=== PATIENT | male | born 1995 | race Caucasian/White ===

== ENCOUNTER 2019-03-29 09:25 | Emergency (ER) | payer OTHER, SELFPAY ==
--- NOTE | ~2019-03-29 | XR_ITS ---
EXAMINATION: XR chest 2V EXAM DATE: 03/29/2019 09:57 INDICATION: Mid chest pain onset last night. TECHNIQUE: Frontal and lateral projections of the chest obtained and reviewed. Comparison is made to prior examination from 09/11/2010. FINDINGS: The lungs are clear. There are no pleural effusions. The cardiomediastinal silhouette is within normal limits. There is no pneumothorax suspected. The bones and soft tissues are unremarkab le. IMPRESSION: Normal chest x-ray exam. Reviewed, dictated and finalized at location A. GRINDER IMPRESSION: Normal chest x-ray exam.
[2019-03-29 09:29] VITALS: BP 154/98; PULSE 97; RESP 15; TEMP 36.8; O2SAT 98
--- NOTE | 2019-03-29 09:35 | ECG_ITS ---
Measurements Intervals [place] Rate: 104 P: 43 RI: 137 QRS: 56 QRSD: 110 T: -9 QT: 368 QTc: 485 Interpretive Statements SINUS TACHY[address] ST ELEVATION IN ANTERIOR LEADS- PROBABLY EARLY REPOLARIZATION BORDERLINE ST-T WAVE ABNORMALITY- INFERIOR LEADS BASELINE ARTIFACT- I, II, AVR, AVF ABNORMAL ECG Electronically Signed On 03-29-2019 11:45:53 CART DRIVER by Jim Baltazar D.O.
[2019-03-29 09:41] VITALS: PULSE 85
[2019-03-29 09:47] LABS: Basophils Percent Auto 0.4 % (0.2-1.2); Eosinophils Absolute Auto 0.2 K/mm3 (0-0.3); Eosinophils Percent Auto 2.7 % (0-4.4); Hemoglobin 17.3 g/dL (14.0-18.0); Immature Granulocyte Absolute 0.04 K/mm3 (0.00-0.031); Immature Granulocyte Percent A 0.5 % (0-0.5); Lymphocytes Absolute Auto 2.75 K/mm3 (0.9-3.2); Lymphocytes Percent Auto 36.5 % (18.3-44.2); Mean Corpuscular HGB Conc 35.3 g/dl (32-36); Mean Corpuscular Hemoglobin 32.5 pg (26-34); Mean Corpuscular Volume 92.1 fl (80-100); Monocytes Absolute Auto 0.8 K/mm3 (0.1-0.6); Monocytes Percent Auto 10.1 % (2.6-8.5); Neutrophils Absolute Auto 3.8 K/mm3 (1.3-6.7); Neutrophils Percent Auto 49.8 % (45.5-73.1); Platelet Count Result 170 k/mm3 (150-375); Red Blood Count 5.32 M/mm3 (4.6-6.20); Red Cell Distribution Width 11.3 % (11.5-14.5); White Blood Count 7.5 K/mm3 (4.5-10.0)
[2019-03-29 09:57] LABS: INR 0.9; Prothrombin Time 11.9 Seconds (11.1-14.7)
[2019-03-29 09:58] LABS: Alanine Aminotransferase 64 U/L (4-50); Albumin Level 4.5 g/dL (3.5-5.1); Alkaline Phosphatase 93 U/L (38-126); Aspartate Amino Transferase 44 U/L (17-59); Bilirubin,Total 0.7 mg/dL (0.2-1.3); Blood Urea Nitrogen 13 mg/dL (9-20); Carbon Dioxide 25 mmol/L (22-30); Chloride 104 mmol/L (98-107); Estimated CRCL calculation 167 ml/min; Estimated Glomerular Filt Rate > 60; Glucose 100 mg/dL (75-110); Lipase 29 U/L (23-300); Partial Thromboplastin Time 26.5 SECONDS (22.3-36.8); Potassium 3.8 mmol/L (3.4-5.0); Sodium 139 mmol/L (137-145)
[2019-03-29 10:02] LABS: D Dimer 0.27 ug/mL (<0.48)
[2019-03-29 10:10] LABS: NT Pro B Type Natriuretic Pept 49 PG/ML (5-100); Troponin I < 0.012 ng/mL (0.000-0.034)
[2019-03-29] MEDS: SODIUM CHLORIDE 0.9% IV 1,000 ML 999 ML IV CONT (10:44)
[2019-03-29 10:48] LABS: Add Urine Microscopic? YES; Appearance Urine Clear (Clear); Bilirubin Urine Negative (Negative); Blood Urine Negative (Negative); Color Urine Yellow (Yellow); Glucose Urine UA Negative (Negative); Ketones Urine Negative (Negative); Leukocyte Esterase Ur Negative LEU/UL (Negative); Mucus Urine Heavy /lpf; Nitrate Urine Negative (Negative); Protein Urine 1+ mg/dL (Negative); Squamous Epithelial Cell Urine Rare /hpf (Few); WBC Urine 0-3 /hpf
[2019-03-29 10:49] LABS: Specific Grav Ur 1.033 (1.001-1.035)
[2019-03-29 11:00] LABS: Barbiturate Screen Urine Negative (Negative)
[2019-03-29 11:03] LABS: Amphetamine Screen Urine Negative (Negative); Cannabinoid Screen Urine Negative (Negative); Cocaine Screen Urine Negative (Negative); Opiate Screen Urine Negative (Negative); Phencyclidine Screen Urine Negative (Negative)
[2019-03-29 11:19] LABS: Benzodiazepines Screen Urine Negative (Negative); Methadone Screen Urine Negative (Negative)
--- NOTE | 2019-03-29 11:22 | ED.GENADULT ---
HPI - General Adult General Chief complaint: Chest Pain Stated complaint: Chest Pain Time Seen by Provider: 03/29/19 09:26 Source: patient and family Mode of arrival: ambulatory Limitations: no limitations History of Present Illness HPI narrative: Patient is a 24-year-old male who presents to emergency department for evaluation of midsternal chest heaviness that began last night patient was at dinner with family when he felt flushed and sweaty and anxious with history of anxiety and has since had some mild midsternal chest discomfort that he notes is minimal in nature and described as heaviness with slight anxiety patient notes that he had been doing some drinking the night before. Patient denies illness vomiting diarrhea or dyspnea. Patient has not taken anything for his symptoms and on arrival is in the room in no distress Onset (ago): hour(s) Location: chest Radiation: non-radiation Severity: mild Quality: other (heaviness) Pain Consistency: constant Relieving factors: none Exacerbating factors: none Associated symptoms: denies other symptoms and other (Anxiety) Treatments prior to arrival: none Related Data Allergies Allergy/AdvReac Type Severity Reaction Status Date / Time Cephalosporins Allergy Mild Unknown Verified 03/29/19 09:43 cefprozil Allergy Unknown Unknown Verified 03/29/19 09:43 sulfamethizole Allergy Unknown rash Verified 06/28/16 08:20 trimethoprim Allergy Unknown rash Verified 06/28/16 08:20 Review of Systems Review of Systems: Narrative: CONSTITUTIONAL: Denies fever, chills, or sweats. EYES: Denies redness, or discharge. ENT: Denies rhinorrhea, congestion, sore throat, or otalgia. CARDIOVASCULAR: Denies palpitations, or edema. RESPIRATORY: Denies cough or dyspnea. GASTROINTESTINAL: Denies abdominal pain, nausea, vomiting, or diarrhea. GENITOURINARY: Denies dysuria or hematuria. SKIN: Denies rash or itching. MUSCULOSKELETAL: Denies back pain, joint pain, or myalgia. NEUROLOGIC: Denies headache, numbness, dizziness, or weakness. PSYCHIATRIC: Denies depression. All systems reviewed & are unremarkable except as noted in HPI and below PMFSH Past Medical History Medical History (Updated 03/29/19 @ 13:44 by Stas Pimentel PA-C) Anxiety Surgical History Surgical History (Updated 03/29/19 @ 11:25 by Stas Pimentel PA-C) H/O hand surgery Family History Family History Father Hypertension Grandparent Family history of cardiovascular disease Cerebrovascular accident Family history of malignant neoplasm of brain Other Diabetes mellitus Social History Social History Smoking status: Smoker, status unknown Alcohol intake: never Exam Narrative: Exam Narrative: GENERAL: Well-appearing, well-nourished, and in no acute distress. HEAD: Normocephalic, atraumatic. EYES: PERRLA and EOMI. ENT: Nares clear, no rhinorrhea or epistaxis. Mucous membranes moist. Oropharynx without tonsillar hypertrophy exudate or other lesions. NECK: Supple. No adenopathy or masses. CHEST: Clear to auscultation. No respiratory distress. No wheezes rales or rhonchi HEART: Regular rate and rhythm. No murmur heard. Normal peripheral pulses. ABDOMEN: Soft, nontender, nondistended EXTREMITIES: Normal range of motion. No edema. SKIN: Warm, dry, no rash. NEURO: No focal deficits. Alert and oriented x3. Cranial nerves II through XII grossly intact. Normal speech and gait PSYCH: Normal mood and affect. Course Course Emergency Course: Patient in the room in no distress aware of case findings treatment plan and diagnosis agreeing to follow-up as directed or to return Vital Signs Vital signs: Vital Signs Temperature 98.2 F 03/29/19 09:29 Pulse Rate 97 03/29/19 09:29 Respiratory Rate 15 03/29/19 09:29 Blood Pressure 154/98 H 03/29/19 09:29 Pulse Oximetry 98 03/29/19 09:29 [place]
[2019-03-29 11:24] LABS: Free T4 Free Thyroxine Reflex 0.64 ng/dL (0.78-2.19)
[2019-03-29 11:50] VITALS: PULSE 66; RESP 16; O2SAT 97
[2019-03-29 12:50] VITALS: PULSE 67; RESP 16; O2SAT 99
[2019-03-29 13:21] LABS: Troponin I < 0.012 ng/mL (0.000-0.034)
[2019-03-29] MEDS: KETOROLAC 30 MG/ML VIAL (*BKC) IV PUSH (13:48)
[2019-03-29 13:51] VITALS: BP 145/81; PULSE 60; RESP 16; O2SAT 97
[2019-03-29 14:13] VITALS: PULSE 97; RESP 16; O2SAT 96
== END 2019-03-29 14:10 | disposition home or self-care (01) ==
PROVIDERS: Emergency Medicine Emergency Medical Services; Emergency Provider Emergency Medicine; PCP Family Medicine
DX: R07.2 Precordial pain (principal); R00.0 Tachycardia, unspecified; R94.31 Abnormal electrocardiogram [ECG] [EKG]
CPT/HCPCS: 36415; 71046; 80053; 80307; 81001; 83690; 83880; 84439; 84443; 84484; 85025; 85380; 85610; 85730; 93005; 96361; 96374; 99284; J1885; J7030

== ENCOUNTER 2019-07-10 11:30 | Outpatient (CLI) | payer OTHER, SELFPAY | END 2019-07-10 11:31 | disposition home or self-care (01) | LOC: CHSOUTPT 11:33 | PROVIDERS: PCP Family Medicine; Visit Provider Specialist | DX: E78.5 Hyperlipidemia, unspecified (principal) | CPT/HCPCS: 99199 ==

== ENCOUNTER 2019-10-10 07:00 | Outpatient (CLI) | payer OTHER, SELFPAY ==
--- NOTE | ~2019-10-10 | NM_ITS ---
EXAMINATION: NM hepatobiliary w pharm DATE: 10/10/2019 09:06 INDICATION: Epigastric abdominal pain. Gastroesophageal reflux disease. COMPARISON: CT abdomen 04/16/2019 TECHNIQUE: 5.3 mCi Tc-99m mebrofenin (Choletec) was administered intravenously. Scintigraphic images of the abdomen were obtained for one hour. Then, 1.9 mcg sincalide (Kinevac) IV was administered, an d imaging was continued for 30 minutes. FINDINGS: There is normal clearance of radiotracer from the blood pool. There is homogeneous tracer u ptake by the liver. Activity progresses to the bowel and gallbladder. Gallbladder ejection fraction (GBEF) was 96%. Note that most patients with gallbladder dysfunction have GBEF < 35%, which overlaps with the broad normal range of 10-90%. IMPRESSION: 1. Normal hepatobiliary scintigraphy. Reviewed, dictated and finalized at location A.
== END 2019-10-10 07:01 | disposition home or self-care (01) ==
PROVIDERS: PCP Family Medicine; Visit Provider Internal Medicine Gastroenterology
DX: K21.9 Gastro-esophageal reflux disease without esophagitis (principal); R10.13 Epigastric pain
CPT/HCPCS: 78227; A9537; J2805

== ENCOUNTER 2020-08-18 07:39 | Outpatient (CLI) | payer OTHER, SELFPAY ==
--- NOTE | ~2020-08-18 | MR_ITS ---
EXAMINATION: MR brain/brain stem wo con DATE: 08/18/2020 08:56 INDICATION: Dizziness and giddiness. TECHNIQUE: Magnetic resonance imaging (MRI) of the brain and brainstem was performed without intraven ous contrast. Sequences included sagittal and axial T1-weighted FSE, axial diffusion-weighted FS EPI, axial T2*-weighted GRE, axial T2-weighted FLAIR Propeller, and axial T2-weighted Propeller. Apparent diffusion coefficient (ADC) maps were created. COMPARISON: Brain MRI 08/23/2016 FINDINGS: There is no intracranial hemorrhage, acute infarction, or abnormal intracranial mass lesion . The ventricles are normal in size. There is mucosal thickening in the paranasal sinuses. The orbits are normal. The mastoid air cells are normal. IMPRESSION: 1. Normal brain. Reviewed, dictated and finalized at location A. IMPRESSION: 1. Normal brain.
== END 2020-08-18 07:40 | disposition home or self-care (01) ==
PROVIDERS: PCP Family Medicine; Visit Provider Nurse Practitioner Family
DX: R42 Dizziness and giddiness (principal)
CPT/HCPCS: 70551

== ENCOUNTER 2022-03-25 13:30 | Outpatient (CLI) | payer OTHER, SELFPAY ==
--- NOTE | ~2022-03-25 | XR_ITS ---
EXAMINATION: SCOLIOSIS DATE: 03/25/2022 18:15 STILE RIPSAW OPERATOR INDICATION: Back pain TECHNIQUE: Standing AP and lateral views of the thoracolumbar spine FINDINGS: There are 12 rib bearing thoracic vertebral bodies and 5 non-rib bearing lumbar type verteb ral bodies. There is no listhesis, compression deformity or vertebral body anomalies. There is mild levocurvature of the lumbar spine centered at T12 of 5 degrees. IMPRESSION: 1. Mild smooth levoscoliosis of the thoracolumbar spine measuring 5 degrees. 2. No vertebral body anomalies. Reviewed, dictated and finalized at location A. E RIPSAW OPERATOR
== END 2022-03-25 13:31 | disposition home or self-care (01) ==
LOC: ANHIMG 13:37
PROVIDERS: PCP Internal Medicine; Visit Provider Internal Medicine
DX: M54.50 Low back pain, unspecified (principal); G89.29 Other chronic pain; M41.85 Other forms of scoliosis, thoracolumbar region
CPT/HCPCS: 72082

== ENCOUNTER 2025-04-20 12:54 | Emergency (ER) | payer OTHER, SELFPAY ==
[2025-04-20] VITALS (17 sets, daily range): BP systolic 126–147; BP diastolic 68–83; PULSE 72–90; RESP 12–20; TEMP 36.4–36.5; O2SAT 94–100
--- NOTE | ~2025-04-20 | XR_ITS ---
Examination: XR chest 2V Clinical History: chest pain Comparison: 01/27/2019 Technique: PA and Lateral Findings: Cardiomediastinal silhouette normal size and configuration. Lungs clear. No acute bony abnormality. IMPRESSION: 1. No acute cardiopulmonary findings. Reviewed, dictated and finalized at location R. LIFE SCIENCE PROFESSOR
--- NOTE | 2025-04-20 12:59 | ECG_ITS ---
Test Date: 2025-04-20 13:03:07 Measurements Intervals [place] Rate: 78 P: 61 HI: 141 QRS: 76 QRSD: 105 T: 42 QT: 335 QTc: 383 Interpretive Statements SINUS RHYTHM NORMAL ECG No previous ECG available for comparison Electronically Signed On 04-20-2025 21:55:45 CENTRAL OFFICE SUPERVISOR by Jim Baltazar D.O.
[2025-04-20 13:08] LABS: Hematocrit 49.4 % (42.0-52.0); Hemoglobin 17.9 g/dL (14.0-18.0); Immature Granulocyte Percent A 0.4 % (0-0.5); Lymphocytes Absolute Auto 1.34 K/mm3 (0.9-3.2); Mean Corpuscular HGB Conc 36.2 g/dl (32-36); Mean Corpuscular Hemoglobin 33.5 pg (26-34); Mean Corpuscular Volume 92.3 fl (80-100); Nucleated Red Blood Cells Absolute Auto 0.000 K/mm3 (0.0-0.012); Nucleated Red Blood Cells Perc 0.0 % (0.0-0.2); Platelet Count Result 160 k/mm3 (150-375); Red Blood Count 5.35 M/mm3 (4.6-6.20); White Blood Count 9.0 K/mm3 (4.5-10.0)
[2025-04-20 13:20] LABS: INR 1.0; Prothrombin Time 13.1 Seconds (11.1-14.7)
[2025-04-20 13:21] LABS: Alanine Aminotransferase 34 U/L (6-50); Albumin Level 4.6 g/dL (3.5-5.1); Alkaline Phosphatase 73 U/L (38-126); Anion Gap 6 mmol/L (4-12); Aspartate Amino Transferase 34 U/L (17-59); Bilirubin,Total 0.7 mg/dL (0.2-1.3); Blood Urea Nitrogen 8 mg/dL (9-20); Calcium 9.5 mg/dL (8.4-10.2); Carbon Dioxide 27 mmol/L (22-30); Chloride 106 mmol/L (98-107); Estimated CRCL calculation 127 ml/min; Estimated Glomerular Filt Rate > 60; Glucose 118 mg/dL (65-110); Lipase 39 U/L (23-300); Partial Thromboplastin Time 24.9 Seconds (22.3-36.8); Potassium 3.6 mmol/L (3.4-5.0); Sodium 139 mmol/L (137-145); Total Protein 7.8 g/dL (6.3-8.2)
[2025-04-20 13:33] LABS: Troponin I < 0.012 ng/mL (0.000-0.034)
--- NOTE | 2025-04-20 13:52 | ED.CHESTPAIN ---
HPI - Chest Pain General Chief Complaint: Chest Pain Stated Complaint: CP Time Seen by Provider: 04/20/25 13:52 History of Present Illness HPI narrative: 30-year-old male presents emergency department chest pain. States it has been there for about 2-3 hours , states he has had a sore throat and URI symptoms for a couple days. Denies any shortness of breath no pain with exertion states that the pain started when he is at rest denies any currently. Related Data Allergies Allergy/AdvReac Type Severity Reaction Status Date / Time Cephalosporins Allergy Mild Unknown Verified 11/13/20 10:38 cefprozil Allergy Unknown Unknown Verified 11/13/20 10:38 sulfamethizole Allergy Unknown rash Verified 11/13/20 10:38 trimethoprim Allergy Unknown rash Verified 11/13/20 10:38 Review of Systems Review of Systems: All systems reviewed & are unremarkable except as noted in HPI and below PMFSH Past Medical History Medical History Anxiety BMI 27.0-27.9,adult BMI 28.0-28.9,adult Surgical History Surgical History H/O hand surgery Family History Family History Father Hypertension Grandparent Family history of cardiovascular disease Cerebrovascular accident Family history of malignant neoplasm of brain Mother No problems noted. Sibling No problems noted. Other Diabetes mellitus Social History Social History Smoking packs per day: 0.50 Smoking cigarettes per day: 10.0 Years smoked: 5 Smoking pack-years: 2.50 Smoking status: Current every day smoker Tobacco type: cigarettes Second hand tobacco smoke exposure: Yes Alcohol intake: never Substance use: never Substance use type: does not use Living arrangements: with family Occupation/Education: occupation Additional occupation/education comments: Kitchen staff-'s Gender identity (if verbalized by the patient): Male Exam Narrative: EXAMINATION OF ORGAN SYSTEMS/BODY AREAS: Constitutional: Vital signs per nursing GENERAL:[No acute distress, non-toxic appearing.] HEAD: Normal with no signs of head trauma. EYES: EOMI, conjunctiva normal ENT: Hearing grossly intact LUNGS: Nonlabored breathing. clear to auscultation bilaterally HEART: [Regular rate and rhythm] 2+ radial pulses brisk cap refill ABD: [Soft], [nontender to palpation] EXT: Normal range of motion SKIN: [No rashes or lesions.] NEURO: [Alert. No gross focal sensory or strength deficits.] PSYCH: Normal affect Course Vital Signs Vital signs: Vital Signs Pulse Oximetry 100 04/20/25 12:59 Oxygen Delivery Room Air 04/20/25 12:59 Temperature 36.4 C 04/20/25 13:00 Pulse Rate 90 04/20/25 13:00 Respiratory Rate 20 04/20/25 13:00 Blood Pressure 147/83 H 04/20/25 13:00 Pulse Oximetry 99 04/20/25 13:00 Oxygen Delivery Room Air 04/20/25 12:59 [facility] Differential Diagnosis Differential Diagnosis: 30-year-old male presents with chest pain. I suspect that this is likely pleurisy given his recent URI versus peripheral pneumonia versus less likely pneumothorax versus even less likely atypical presentation of ACS. He is PERC negative I do not suspect pulmonary embolism or vascular catastrophe. We will obtain chest x-ray EKG basic labs troponin plan for evaluation after workup and treatment results and re-evaluation Patient's EKG without ischemia troponin negative labs reviewed and acceptable limits chest x-ray per my interpretation no evidence of pneumothorax or peripheral infiltrate. Therefore I will send him home with NSAIDs for presumed underlying musculoskeletal etiology or pleurisy return precautions discussed understanding verbalized discharged in stable condition. Medical Records I have reviewed the following patient records and this information was taken into consideration when formulating the assessment and plan.: previous hospitalizations and previous clinic visits Lab Data [facility] Lab Attestation statement: I personally reviewed the patient's lab results. 04/20/25 13:02 04/20/25 13:02 Labs: Lab Results 04/20/25 Range/Units 13:02 WBC 9.0 (4.5-10.0) K/mm3 RBC 5.35 (4.6-6.20) M/mm3 Hgb 17.9 (14.0-18.0) g/dL Hct 49.4 (42.0-52.0) % MCV 92.3 (80-100) fl MCH 33.5 (26-34) pg MCHC 36.2 H (32-36) g/dl RDW 11.9 (11.5-14.5) % Plt Count 160 (150-375) k/mm3 MPV 9.2 (7.4-10.4) fl Immature Gran % (Auto) 0.4 (0-0.5) % Neut % (Auto) 76.9 H (45.5-73.1) % Lymph % (Auto) 14.9 L (18.3-44.2) % [place] % (Auto) 6.9 (2.6-8.5) % Eos % (Auto) 0.6 (0-4.4) % Baso % (Auto) 0.3 (0.2-1.2) % Lymph # (Auto) 1.34 (0.9-3.2) K/mm3 [place] # (Auto) 0.6 (0.1-0.6) K/mm3 Eos # (Auto) 0.1 (0-0.3) K/mm3 Baso # (Auto) 0.0 (0.0-0.1) K/mm3 Abs Immat Gran (auto) 0.04 H (0.00-0.031) K/mm3 Absolute Neuts (auto) 6.9 H (1.3-6.7) K/mm3 Absolute Nucleated RBC 0.000 (0.0-0.012) K/mm3 Nucleated RBC % 0.0 (0.0-0.2) % PT 13.1 (11.1-14.7) Seconds INR 1.0 APTT 24.9 (22.3-36.8) Seconds Sodium 139 (137-145) mmol/L Potassium 3.6 (3.4-5.0) mmol/L Chloride 106 (98-107) mmol/L Carbon Dioxide 27 (22-30) mmol/L Anion Gap 6 (4-12) mmol/L BUN 8 L D (9-20) mg/dL Creatinine 0.77 (0.7-1.3) mg/dL Estim Creat Clear Calc 127 ml/min Estimated GFR > 60 (59 - ) Glucose 118 H (65-110) mg/dL Calcium 9.5 (8.4-10.2) mg/dL Total Bilirubin 0.7 (0.2-1.3) mg/dL AST 34 (17-59) U/L ALT 34 (6-50) U/L Alkaline Phosphatase 73 (38-126) U/L Troponin I < 0.012 (0.000-0.034) ng/mL Total Protein 7.8 (6.3-8.2) g/dL Albumin 4.6 (3.5-5.1) g/dL Lipase 39 (23-300) U/L Imaging Data Attestation: I personally reviewed and interpreted this imaging study as follows: My impression: chest x-ray negative acute any cardiopulmonary findings per my interpretation Radiologist's impression: ITS Impressions Chest X-Ray 04/20/25 13:43 IMPRESSION: 1. No acute cardiopulmonary findings. ECG Data EKG #1: Attestation: I personally reviewed and interpreted this ECG as follows: Interpretation: 12 lead EKG per my interpretation is normal sinus rhythm at 70 beats per minute. Normal axis. Normal intervals. No evidence of ST-T segment elevation or depression. Overall impression normal EKG. Discharge Plan Discharge Clinical Impression: Chest pain Patient Disposition: Home Condition: Stable Instructions: Chest Pain (ED) Patient Language: Cape Verdean Prescriptions: New ketorolac 10 mg tablet 10 mg PO Q8H Qty: 14 5RF Rx Instructions: maximum total duration of 5 days from all oral, intranasal, or parenteral formulations No Action meclizine 25 mg tablet 25 mg PO TID PRN (Reason: dizziness) Qty: 30 0RF azithromycin 250 mg tablet See Rx Instructions PO .COMPLEX Qty: 6 0RF Rx Instructions: take 500 mg today (day 1), then 250 mg for 4 days (days 2-5) PO Follow-up/Referrals: Misael,MD Randi [Primary Care Provider, Unknown] - 1 Week Time of Disposition: 15:05
--- OUTSIDE RECORDS SUMMARY | 2025-04-20 14:03 | XMS_ITS | Encounter Summary ---
Author Organization [facility] Address [address] [place] [address] Care Team Providers Care Press Operator Meat Name Role Phone Randi Douglas MD Primary Care Provider [phone] Encounter Details Date Type Department Care Team (Late st Contact Info) Description 01/19/2023 Cornicehart Message Enc [facility] Medical [facility] [address] [place] [address] Randi Douglas MD [address] [place] [address] [place] pain Social History Tobacco Use Types Packs/Day Years Used Date Smoking Tobacco: Every Day Cigarettes 0.5 10 Smokeless Tobacco: Never Comments:counseled by Dr Chapis chappell Alcohol Use Standard Drinks/Week Comments Not Currently 0 (1 standard drink = 0.6 oz pur e alcohol) PHQ-2 Answer Date Recorded PHQ-2 Score - If the patient scores above 3, please move on to questions 3-9 0 02/08/2022 Sex and Gender Information Value Date Recorded Sex Assigned at Not on file Legal Sex Male 2:11 PM CDT Gender Identity Not on file Sexual Orientation Not on file documented as of this encounter Plan of Treatment Upcoming Encounters Date Type Department Care Team (Late st Contact Info) Description 10/18/2025 9:20 AM CDT [facility] [address] [place] [address] Randi Douglas MD [address] [place] [address] documented as of this encounter Visit Diagnoses Not on filedocumented in this encounter Additional Health Concerns Infection Onset Date Last Indicated Resolved Time Respiratory Rule Out 02/26/2025 02/26/2025 025 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
--- OUTSIDE RECORDS SUMMARY | 2025-04-20 14:03 | XMS_ITS | Encounter Summary ---
Author Organization [facility] Address [address] [place] [address] Care Team Providers Care Can Conveyor Feeder Name Role Phone Randi Douglas MD Primary Care Provider [phone] Encounter Details Date Type Department Care Team (Latest Contact Info) Description 03/23/2022 NewAerhart Message [facility] [address] [place] [address] Randi Douglas MD [address] [place] [address] [address] [place] [address] Swelling near armpit Social History Tobacco Use Types Packs/Day Years [...] on file Sexual Orientation Not on file COVID-19 Exposure Response Date Recorded In the last 10 days, have yo u been in contact with someone who was confirmed or suspected to have Coronavirus/COVID-19? No / Unsure 03/24/2022 10:52 AM BUS VAN DRIVER documented as of this encounter Plan of Treatment Upcoming Encounters Date Type Department Care Team (Late st Contact Info) Description 10/18/2025 9:20 AM CDT [facility] [address] [place] [address] Randi Douglas MD [address] [facility] [address] [place] [address] documented as of this encounter Visit Diagnoses Not on filedocumented in this encounter Additional Health Concerns Infection Onset Date Last Indicated Resolved Time COVID-19 Rule Out 07/21/2022 07/21/2022 07/21/2022 3:00 PM CDT COVID-19 Rule Out 07/21/2022 07/21/2022 07/22/2022 3:08 PM CDT Respiratory Rule Out 02/26/2025 02/26/2025 025 9:01 AM BUS VAN DRIVER documented as of this encounter Care Teams Can Conveyor Feeder Relationship Specialty Start Date End Date Randi Douglas MD [address] [facility] [address] [place] [address] PCP - General INTERNAL MEDICINE 02/08/22 documented as of this encounter
--- OUTSIDE RECORDS SUMMARY | 2025-04-20 14:03 | XMS_ITS | Encounter Summary ---
Author Organization [facility] Address [address] [place] [address] Care Team Providers Care Ui Ux Engineer Name Role Phone Randi Douglas MD Primary Care Provider [phone] Encounter Details Date Type Department Care Team (Late Contact Info) Description 04/22/2022 MyChart Message [facility] - [address] [place] [address] Randi Douglas MD [address] [place] [address] [address] [place] [address] Medication Social History Tobacco Use Types Packs/Day Years [...] suspected to have Coronavirus/COVID-19? No / Unsure 04/14/2022 3:34 PM HOME CARE COORDINATOR documented as of this encounter Plan of Treatment Upcoming Encounters Date Type Department Care Team (Late Contact Info) Description 10/18/2025 9:20 AM CDT Office [facility] - [address] [place] [address] Randi Douglas MD [address] [address] documented as of this encounter Visit Diagnoses Not on filedocumented in this encounter Additional Health Concerns Infection Onset Date Last Indicated Resolved Time COVID-19 Rule Out 07/21/2022 07/21/2022 07/21/2022 3:00 PM CDT COVID-19 Rule Out 07/21/2022 07/21/2022 07/22/2022 3:08 PM CDT Respiratory Rule Out 02/26/2025 02/26/2025 025 9:01 AM HOME CARE COORDINATOR documented as of this encounter Care Teams Ui Ux Engineer Relationship Specialty Start Date End Date Randi Douglas MD [address] [address] PCP - General INTERNAL MEDICINE 02/08/22 documented as of this encounter
--- OUTSIDE RECORDS SUMMARY | 2025-04-20 14:03 | XMS_ITS | Encounter Summary ---
Author Organization [facility] Address [address] [place] [address] Care Team Providers Care Electrode Cleaning Machine Operator Name Role Phone Randi Douglas MD Primary Care Provider [phone] Encounter Details Date Type Department Care Team (Latest Contact Info) Description 01/28/2023 Convrrtt Message Enc [facility] - [address] [place] [address] Randi Douglas MD [address] [place] [address] Please go online and schedule for your next appointment. Social History Tobacco Use Types Packs/Day Years [...] Description 10/18/2025 9:20 AM CDT Office Visit [facility] - [place] [address] [address] [place] [address] Randi Douglas MD [address] [place] [address] documented as of this encounter Visit Diagnoses Not on filedocumented in this encounter Additional Health Concerns Infection Onset Date Last Indicated Resolved Time Respiratory Rule Out 02/26/2025 02/26/2025 025 9:01 AM STEREOTYPER APPRENTICE documented as of this encounter Care Teams Electrode Cleaning Machine Operator Relationship Specialty Start Date End Date Randi Douglas MD [address] [address] PCP - General INTERNAL MEDICINE 02/08/22 documented as of this encounter
--- OUTSIDE RECORDS SUMMARY | 2025-04-20 14:03 | XMS_ITS | Encounter Summary ---
Author Organization [facility] Address [address] [place] [address] Care Team Providers Care Database Programmer Name Role Phone Randi Douglas MD Primary Care Provider [phone] Encounter Details Date Type Department Care Team (Late Contact Info) Description 03/15/2022 MyChart [facility] - [address] [place] [address] Randi Douglas MD [address] [place] [address] [address] [place] [address] Sinus Social History Tobacco Use Types Packs/Day Years [...] suspected to have Coronavirus/COVID-19? No / Unsure 03/09/2022 12:35 PM SERVICE CLERK documented as of this encounter Plan of Treatment Upcoming Encounters Date Type Department Care Team (Late st Contact Info) Description 10/18/2025 9:20 AM CDT Office Visit [facility] - [address] [place] [address] Randi Douglas MD [address] [address] documented as of this encounter Visit Diagnoses Not on filedocumented in this encounter Additional Health Concerns Infection Onset Date Last Indicated Resolved Time COVID-19 Rule Out 07/21/2022 07/21/2022 07/21/2022 3:00 PM CDT COVID-19 Rule Out 07/21/2022 07/21/2022 07/22/2022 3:08 PM CDT Respiratory Rule Out 02/26/2025 02/26/2025 025 9:01 AM SERVICE CLERK documented as of this encounter Care Teams Database Programmer Relationship Specialty Start Date End Date Randi Douglas MD [address] [address] PCP - General INTERNAL MEDICINE 02/08/22 documented as of this encounter
--- OUTSIDE RECORDS SUMMARY | 2025-04-20 14:03 | XMS_ITS | Encounter Summary ---
Author Organization [facility] Address [address] [place] [address] Care Team Providers Care Pipe Fitter Soft Copper Name Role Phone Randi Douglas MD Primary Care Provider [phone] Encounter Details Date Type Department Care Team (Late Contact Info) Description 03/29/[address] [facility] [address] [address] [place] [address] Devon, [facility] Provider Xray Result Social History Tobacco Use Types Packs/Day Years [...] Coronavirus/COVID-19? No / Unsure 03/24/2022 10:52 AM SUPERVISOR PAYROLL documented as of this encounter Plan of Treatment Upcoming Encounters Date Type Department Care Team (Late Contact Info) Description 10/18/2025 9:20 AM CDT [facility] [address] [address] [place] [address] Randi Douglas MD [address] [place] [address] 157 [place] [address] documented as of this encounter Visit Diagnoses Not on filedocumented in this encounter Additional Health Concerns Infection Onset Date Last Indicated Resolved Time COVID-19 Rule Out 07/21/2022 07/21/2022 07/21/2022 3:00 PM CDT COVID-19 Rule Out 07/21/2022 07/21/2022 07/22/2022 3:08 PM CDT Respiratory Rule Out 02/26/2025 02/26/2025 025 9:01 AM SUPERVISOR PAYROLL documented as of this encounter Care Teams Pipe Fitter Soft Copper Relationship Specialty Start Date End Date Randi Douglas MD [address] [address] PCP - General INTERNAL MEDICINE 02/08/22 documented as of this encounter
--- OUTSIDE RECORDS SUMMARY | 2025-04-20 14:03 | XMS_ITS | Encounter Summary ---
Author Organization [facility] Address [address] [place] [address] Care Team Providers Care Breeding Technician Name Role Phone Randi Douglas MD Primary Care Provider [phone] Encounter Details Date Type Department Care Team (Late Contact Info) Description 05/06/2022 MyChart Message [facility] [address] [place] [address] Randi Douglas MD [address] [place] [address] 157 [place] [address] M Social History Tobacco Use Types Packs/Day Years [...] Coronavirus/COVID-19? No / Unsure 04/14/2022 3:34 PM OIL BURNER INSTALLER documented as of this encounter Plan of Treatment Upcoming Encounters Date Type Department Care Team (Late st Contact Info) Description 10/18/2025 9:20 AM CDT Office Visit [facility] - [address] [place] [address] Randi Douglas MD [address] [address] documented as of this encounter Visit Diagnoses Not on filedocumented in this encounter Additional Health Concerns Infection Onset Date Last Indicated Resolved Time COVID-19 Rule Out 07/21/2022 07/21/2022 07/21/2022 3:00 PM CDT COVID-19 Rule Out 07/21/2022 07/21/2022 07/22/2022 3:08 PM CDT Respiratory Rule Out 02/26/2025 02/26/2025 025 9:01 AM OIL BURNER INSTALLER documented as of this encounter Care Teams Breeding Technician Relationship Specialty Start Date End Date Randi Douglas MD [address] [address] PCP - General INTERNAL MEDICINE 02/08/22 documented as of this encounter
--- OUTSIDE RECORDS SUMMARY | 2025-04-20 14:03 | XMS_ITS | Encounter Summary ---
Author Organization [facility] Address [address] [place] [address] Care Team Providers Care Bleach Maker Name Role Phone Randi Douglas MD Primary Care Provider [phone] Encounter Details Date Type Department Care Team (Late Contact Info) Description 03/15/2022 Unicon Message Enc [place] [address] [address] [address] [place] [address] Devon [facility] Provider med approval Social History Tobacco Use Types Packs/Day Years [...] Coronavirus/COVID-19? No / Unsure 03/09/2022 12:35 PM CONSTRUCTION TECHNICIAN documented as of this encounter Plan of Treatment Upcoming Encounters Date Type Department Care Team (Late Contact Info) Description 10/18/2025 9:20 AM CDT [facility] [address] [address] [place] [address] Randi Douglas MD [address] [place] [address] 157 [place] [address] documented as of this encounter Visit Diagnoses Not on filedocumented in this encounter Additional Health Concerns Infection Onset Date Last Indicated Resolved Time COVID-19 Rule Out 07/21/2022 07/21/2022 07/21/2022 3:00 PM CDT COVID-19 Rule Out 07/21/2022 07/21/2022 07/22/2022 3:08 PM CDT Respiratory Rule Out 02/26/2025 02/26/2025 025 9:01 AM CONSTRUCTION TECHNICIAN documented as of this encounter Care Teams Bleach Maker Relationship Specialty Start Date End Date Randi Douglas MD [address] [address] PCP - General INTERNAL MEDICINE 02/08/22 documented as of this encounter
--- OUTSIDE RECORDS SUMMARY | 2025-04-20 14:03 | XMS_ITS | Encounter Summary ---
Author Organization [facility] Address [address] [place] [address] Care Team Providers Care Center Director Lead Teacher Name Role Phone Randi Douglas MD Primary Care Provider Encounter Details Date Type Department Care Team (Latest Contact Info) Description 12/10/2022 Boomlagoont Message Enc [facility] Medical [facility] - [address] [place] [address] Randi Douglas MD [address] [place] [address] 157 [place] [address] [employer] approved. Social History Tobacco Use Types Packs/Day Years [...] Description 10/18/2025 9:20 AM CDT Office Visit [facility] Medical [facility] - [address] [place] [address] Randi Douglas MD [address] [place] [address] 157 [place] [address] documented as of this encounter Visit Diagnoses Not on filedocumented in this encounter Additional Health Concerns Infection Onset Date Last Indicated Resolved Time Respiratory Rule Out 02/26/2025 02/26/2025 025 9:01 AM SWITCH BOX INSTALLER documented as of this encounter Care Teams Center Director Lead Teacher Relationship Specialty Start Date End Date Randi Douglas MD [facility] [address] PCP - General INTERNAL MEDICINE 02/08/22 documented as of this encounter
--- OUTSIDE RECORDS SUMMARY | 2025-04-20 14:03 | XMS_ITS | Clinical Summary ---
Author Organization [facility] [employer] [facility] [place] [facility] Address [address] [place] [address] Care Team Providers Care Traffic Sign Erection Supervisor Name Role Phone Unavailable Primary Care Provider Unavailabl e Social History Tobacco Use Types Packs/Day Years Used Date Smoking Tobacco: Never Assessed Sex and Gender Information Value Date Recorded Sex Assigned at Not on file Legal Sex Male 11:40 PM EDT Gender Identity Not on file Sexual Orientation Not on file Plan of Treatment Health Maintenance Due Date Last Done Comments Depression: Screening Annually using PHQ-2/9 in Adults 18 yrs or above (or HM Modifier)([facility]) 2014 Hepatitis C Virus Infection in Adolescents and Adults: Screening (or Modifier) ([facility]) 2014 SDOH Screening Reminder: Annually for all adults ([facility]) 2014 Tobacco Smoking Cessation: i n Adults excluding Women: Behavioral and Pharmacotherapy Interventions ([facility]) 2014 Flu Vaccination: Yearly for ages 18mos through 64 years (or Modifier)([facility]) 11/23/2024 COVID-19 Vaccine Screening: Initial Series and Booster Status ([facility]) (2024- season) 2024 DTaP/Tdap/Td Vaccines ([facility]) (8 - Td or Tdap) 02/17/2031 02/17/2021, 11/17/2006, 10/31/2001, Additional history exists Zoster/Shingles Vaccine Series Screening: Adults aged 18+ yrs (or HM Modifiers)([facility]) (1 of 2) 2046 08/17/2007, 03/29/1997 Pneumococcal Vaccination Screening: Pts 0-19 & 19-49 yrs of age ([facility]) Aged Out 03/09/2022 No longer eligible based on patient's age to complete this topic Medical Devices Not on file
--- OUTSIDE RECORDS SUMMARY | 2025-04-20 14:03 | XMS_ITS | Encounter Summary ---
Author Organization [facility] Address [address] [place] [address] Care Team Providers Care Control Systems Developer Name Role Phone Randi Douglas MD Primary Care Provider [phone] Encounter Details Date Type Department Care Team (Latest Contact Info) Description 08/06/2022 sliceX Message Enc [facility] Provider Need Updated Insurance Social History Tobacco Use Types Packs/Day Years [...] suspected to have Coronavirus/COVID-19? No / Unsure 07/21/2022 2:07 PM CDT documented as of this encounter Plan of Treatment Upcoming Encounters Date Type Department Care Team (Late st Contact Info) Description 10/18/2025 9:20 AM CDT Office Visit [facility] - [place] [address] [address] [address] [place] [address] Randi Douglas MD [address] [place] [address] 157 [place], [place] [id number] documented as of this encounter Visit Diagnoses Not on filedocumented in this encounter Additional Health Concerns Infection Onset Date Last Indicated Resolved Time Respiratory Rule Out 02/26/2025 02/26/2025 025 9:01 AM BODY FORMER documented as of this encounter Care Teams Control Systems Developer Relationship Specialty Start Date End Date Randi Douglas MD [address] [address] PCP - General INTERNAL MEDICINE 02/08/22 documented as of this encounter
--- OUTSIDE RECORDS SUMMARY | 2025-04-20 14:03 | XMS_ITS | Encounter Summary ---
Author Organization [facility] Address [address] [place] [address] Care Team Providers Care Automatic Lathe Setter Name Role Phone Randi Douglas MD Primary Care Provider [phone] Encounter Details Date Type Department Care Team (Late st Contact Info) Description 07/06/2022 Access Systemshart Message [facility] [address] Randi Douglas MD [address] [place] [address] Medication Social History Tobacco Use Types [...] Description 10/18/2025 9:20 AM CDT [facility] [address] [place] [address] Randi Douglas MD [facility] [address] [address] documented as of this encounter Visit Diagnoses Not on filedocumented in this encounter Additional Health Concerns Infection Onset Date Last Indicated Resolved Time COVID-19 Rule Out 07/21/2022 07/21/2022 07/21/2022 3:00 PM CDT COVID-19 Rule Out 07/21/2022 07/21/2022 07/22/2022 3:08 PM CDT Respiratory Rule Out 02/26/2025 02/26/2025 025 9:01 AM RETAIL DIRECTOR documented as of this encounter Care Teams Automatic Lathe Setter Relationship Specialty Start Date End Date Randi Douglas MD [address] [address] PCP - General INTERNAL MEDICINE 02/08/22 documented as of this encounter
--- OUTSIDE RECORDS SUMMARY | 2025-04-20 14:03 | XMS_ITS | Encounter Summary ---
Author Organization [facility] Address [address] [place] [address] Care Team Providers Care Erosion Control Specialist Name Role Phone Randi Douglas MD Primary Care Provider [phone] Encounter Details Date Type Department Care Team (Latest Contact Info) Description 12/10/2022 ChupaMobilet Message Enc [facility] Medical [facility] - [address] [place] [address] Randi Douglas MD [address] [place] [address] 157 [place] [address] [facility] approved. Social History Tobacco Use Types Packs/Day [...] Description 10/18/2025 9:20 AM CDT Office Visit [facility] Medical [facility] - [address] [place] [address] Randi Douglas MD [address] [place] [address] 157 [place] [address] documented as of this encounter Visit Diagnoses Not on filedocumented in this encounter Additional Health Concerns Infection Onset Date Last Indicated Resolved Time Respiratory Rule Out 02/26/2025 02/26/2025 025 9:01 AM DRUM SANDER OFFBEARER documented as of this encounter Care Teams Erosion Control Specialist Relationship Specialty Start Date End Date Randi Douglas MD [facility] [address] [address] PCP - General INTERNAL MEDICINE 02/08/22 documented as of this encounter
--- OUTSIDE RECORDS SUMMARY | 2025-04-20 14:04 | XMS_ITS | Encounter Summary ---
Author Organization [facility] Address [address] [place] [address] Care Team Providers Care Retail Aide Name Role Phone Randi Douglas MD Primary Care Provider [phone] Encounter Details Date Type Department Care Team (Late st Contact Info) Description 12/22/2024 MyChart [facility] [place] [address] Randi Douglas MD [address] [place] [address] Liver Social History Tobacco Use Types Packs/Day Years Used Date Smoking Tobacco: Former Cigarettes 0 10/12/2024 - 04/25/2014 Smokeless Tobacco: Never Comments:counseled by Dr Chapis chappell Alcohol Use Standard Drinks/Week Comments Not Currently 0 (1 standard drink = 0.6 oz pur e alcohol) PHQ-2 Answer Date Recorded Patient Health Questionnaire-2 Score 0 10/15/2024 Sex and Gender Information Value Date Recorded Sex Assigned at Not on file Legal Sex Male 2:11 PM CDT Gender Identity Not on file Sexual Orientation Not on file documented as of this encounter Plan of Treatment Upcoming Encounters Date Type Department Care Team (Late st Contact Info) Description 10/18/2025 9:20 AM CDT [facility] [place] [address] Randi Douglas MD [facility] [address] [id number] documented as of this encounter Visit Diagnoses Not on filedocumented in this encounter Additional Health Concerns Infection Onset Date Last Indicated Resolved Time Respiratory Rule Out 02/26/2025 02/26/2025 025 9:01 AM WEB CONTENT MANAGER Assessment Noted Time PHQ-9 Depression Total Score: 1 10/16/19 25 12:16 PM CDT documented as of this encounter Care Teams Retail Aide Relationship Specialty Start Date End Date Randi Douglas MD [address] [address] PCP - General INTERNAL MEDICINE 02/08/22 documented as of this encounter
--- OUTSIDE RECORDS SUMMARY | 2025-04-20 14:04 | XMS_ITS | Clinical Summary ---
Author Organization [facility] Address [address] [place] [address] Phone Care Team Providers Care Law Examiner Name Role Phone Yash Cummings MD Primary Care Provider [phone] Social History Tobacco Use Types Packs/Day Years Used Date Smoking Tobacco: Never Assessed Sex and Gender Information Value Date Recorded Sex Assigned at Male 10/31/2023 10:40 AM CDT Legal Sex Male 10:31 AM CDT Gender Identity Male 10/31/2023 10:40 AM CDT Sexual Orientation Not on file Plan of Treatment Health Maintenance Due Date Last Done Comments Influenza Immunization (#1) 2024 SARS-COV-2 Immunization ( season) 2024 Respiratory Syncytial Virus (RSV) Immunization (Adult) (1 - 1-dose 75+ series) 2071 Hepatitis B Immunization Completed 997, 1996, 1996 Varicella Immunization Completed 8, 03/29/1997 Meningococcal Immunization (ACWY) Aged Out 10/17/2007 No longer eligible b ased on patient's age to complete this topic Human Papillomavirus (HPV) Immunization Completed 09/13/2011, 10/14/2010 TdaP Immunization Completed 02/17/2021, 11/17/2006 Hepatitis C Virus (HCV) Screening Completed 02/15/2022 Pneumococcal Immunization Combined Aged Out 03/09/2022 No longer eligible b ased on patient's age to complete this topic Rotavirus Immunization Aged Out No lo nger eligible based on patient's age to complete this topic Care Teams Law Examiner Relationship Specialty Start Date End Date Yash Cummings MD [address] [place] [address] PCP - General Internal Medicine 10/31/23
--- OUTSIDE RECORDS SUMMARY | 2025-04-20 14:04 | XMS_ITS | Clinical Summary ---
Author Organization [facility] Address [address] [place] [address] Care Team Providers Care Apparel Sales Leader Name Role Phone Mike Brown MD Primary Care Provider Allergies Active Allergy Reactions Criticality Noted Date Comments Cefprozil Sulfamethoxazole-Trimethoprim Medications meclizine (ANTIVERT) 12.5 mg tabletIndication s:Dizziness on standing TAKE 1 TABLET BY MOUTH 3 TIMES A DAY NEEDED FOR DIZZINESS. 30 tablet 10 10/12/2021 Active topiramate (TOPAMAX) 25 mg tabletIndication s:Migraine with persistent visual aura Take 1 tablet (25 mg total) by mouth 2 (two) times a day 60 tablet 1 11/10/2021 Active Active Problems Problem Noted Date Diagnosed Date Bilateral carpal tunnel syndrome 08/16/2021 Assessment & Plan (11/21/2021 8:48 PM CDT): Carpal tunnel bilaterally, will consider ortho referral vs injection Assessment & Plan (08/16/2021 2:55 PM CDT): Continue meclizine as needed, may take 2 tabs at once rather than 1. Let us know when refill needed Leaning more towards ulnar source rather than carpal tunnel source for the dysesthesias (numbness and tingling). considering referral to ortho Would recommend the splint trial we discussed for 2 weeks Dizziness on standing 04/19/2021 Assessment & Plan (11/21/2021 8:48 PM CDT): Waiting on neuro referral For moderate sinus, will have you do a trial of Flonase OTC (BID-- and followed by nasal saline) and Claritin or Zyrtec. Hold meclizine for now Continue with planned topiramate trial (still wondering if migraine equivalent) Assessment & Plan (04/19/2021 6:55 PM SHOP TAILOR APPRENTICE): Meclizine trial I am leading towards some variant of migraine syndrome, but will need to review more in detail today Likely ulnar entrapment in the arms; bilateral nature is something to consider, but that likely will rule out spinal source. EMG/NCV test will be ordered (I would have that done at [facility]) Update me by end of week if meclizine not working, or if it is Sign up for [employer] portal Encounter for medical examination to establish c are 03/20/2021 Assessment & Plan (03/20/2021 3:28 PM SHOP TAILOR APPRENTICE): A initial well visit to establish care has been performed today. Todd Browne is up to date on screening tests. He is in need of None- no screening indicated at this time- these have been ordered. He is up to date on needed preventative vaccinations. He refuses covid-19 vaccination, at this time BP appears fine today; home readings were not contributory. Labs as ordered I will get lumbar spinal XR given the apparent history of back problems. Scoliosis is also to be considered. 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 Diarrhea 03/08/2013 Immunizations Immunization Administration Dates Next Due DTaP, Unspecified 10/31/2001, 8,1996,1996,0 1996 HPV, Quadrivalent 09/13/2011,10/14/2010 Hep A, Unspecified 10/17/2008,10/17/2007 Hep B, Unspecified 1996,1996, 996 HiB 07/01/1997,1996,1996 ,1996 Influenza, Unspecified 04/25/2021(Deferr ed: Patient Refused),04/25/2021(Deferred: Patient Refused),04/14/2021(Deferred: Patient Refused),06/04/2020(Deferred: Patient Refused),04/25/2020(Deferred: Patient Refused),04/25/2020(Deferred: Patient Refused) MMR 10/31/2001,03/29/1997 Meningococcal MCV4P (Menactra) 10/17/2007 Polio, Unspecified 10/31/2001,03/29/1997, 997,1996 Tdap 02/17/2021,11/17/2006 Varicella 08/17/2007,03/29/1997 Surgical History Surgery Date Site/Laterality Comments TYMPANOSTOMY TUBE PLACEMENT 04/25/1999 - 04/24/2000 Ear Pressure Equalization Tube, Insertion, Bilaterally - (Added by TW Conv) HAND SURGERY 04/25/2017 - 04/24/2018 Right ORIF and reduction of dislocation Medical History Medical History Date Comments Hyperlipidemia Family History Medical History Relation Name Comments SHERIE disease Brother Emphysema Father No Known Problems Maternal Grandfather brain tumor Maternal Grandmother Migraines Mother Intestinal polyp Other 1 Benign Poly ps Of The Large Intestine - (Added by TW Conv) Migraines Other 2 Migraine Headac he - (Added by TW Conv) Diabetes Other 3 Diabetes Mellit us - (Added by [employer] Conv) Heart disease Other 4 Heart Disease - (Added by [employer] Conv) No Known Problems Paternal Grandmother Relation Name Status Comments Brother Alive Father Alive Maternal Grandfather Maternal Grandmother Mother Alive Other 1 Other 2 Other 3 Other 4 Paternal Grandfather Alive Paternal Grandmother Alive Social History Tobacco Use Types Packs/Day Years Used Date Smoking Tobacco: Every Day Cigarettes 0.8 13 Started: 2012 Smokeless Tobacco: Never Tobacco Cessation:Ready to Q uit: Yes; Counseling Given: Yes AUDIT-C Answer Date Recorded Q1: How often do you have a drink containing alc ohol? Never 03/17/2021 Average Number of Drinks Not on file 021 Q3: How often do you have si x or more drinks on one occasion? Never 03/17/2021 PHQ-2 Answer Date Recorded PHQ-2 Total Score (If total score is 3 or more points, staff should administer the PHQ-9) 0 03/17/2021 Education Answer Date Recorded What is the highest level of school you have completed or the highest degree you have received? 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 Not on file Not on file Last Filed Vital Signs Vital Sign Reading Time Taken Comments Blood Pressure 120/70 11/17/2021 1:29 PM CDT Pulse 112 11/17/2021 1:29 PM CDT Temperature 36.9 C (98.4 F) 11/17/2021 1:29 PM CDT Respiratory Rate 16 08/11/2021 11:08 AM CDT Oxygen Saturation 97% 11/17/2021 1:29 PM CDT Inhaled Oxygen Concentration - - Weight 74.8 kg (165 lb) 11/17/2021 1:29 PM CDT Height 177.8 cm (5' 10) 11/17/2021 1:29 PM CDT Body Mass Index 23.68 11/17/2021 1:29 PM CDT Plan of Treatment Not on file Insurance [facility] CHOICE PLUS [facility] OPEN ACCESS [facility] Care Teams Apparel Sales Leader Relationship Specialty Start Date End Date Mike Brown MD PCP - General Family Medicine 03/10/21 [facility] 07/30/21
--- OUTSIDE RECORDS SUMMARY | 2025-04-20 14:04 | XMS_ITS | Encounter Summary ---
Author Organization [facility] Address [address] [place] [address] Care Team Providers Care Plastics Worker Name Role Phone Randi Douglas MD Primary Care Provider [phone] Encounter Details Date Type Department Care Team (Latest Contact Info) Description 02/26/2025 Results Follow-Up [address] [place] [address] Randi Douglas MD [address] [place] [address] CORONAVIRUS (COVID-19) INFLUENZA A & B ANTIGEN IA PANEL, STREP A RAPID, CULTURE STREP A Social History Tobacco Use Types Packs/Day Years [...] Description 10/18/2025 9:20 AM CDT Office Visit [address] [place] [address] Randi Douglas MD [address] [place] [address] documented as of this encounter Visit Diagnoses Not on filedocumented in this encounter Additional Health Concerns Infection Onset Date Last Indicated Resolved Time Respiratory Rule Out 02/26/2025 02/26/2025 025 9:01 AM TELEPHONE REPAIRER Assessment Noted Time PHQ-9 Depression Total Score: 1 10/16/19 25 12:16 PM CDT documented as of this encounter Care Teams Plastics Worker Relationship Specialty Start Date End Date Randi Douglas MD [address] [address] PCP - General INTERNAL MEDICINE 02/08/22 documented as of this encounter
--- OUTSIDE RECORDS SUMMARY | 2025-04-20 14:04 | XMS_ITS | Encounter Summary ---
Author Organization [facility] Address [address] [place] [address] Care Team Providers Care Bench Mechanic Name Role Phone Randi Douglas MD Primary Care Provider [phone] Encounter Details Date Type Department Care Team (Late st Contact Info) Description 04/14/2025 Results Follow-Up [place] [address] [address] [place], [place] [id number] Randi Douglas MD [address] [place] [id number] CULTURE STREP A Social History Tobacco Use Types Packs/Day Years Used Date Smoking Tobacco: Former Cigarettes 0 10/12/2024 - 04/25/2014 Smokeless Tobacco: Never Comments:counseled by Dr Chapis chappell Alcohol Use Standard Drinks/Week Comments Not Currently 0 (1 standard drink = 0.6 oz pur e alcohol) PHQ-2 Answer Date Recorded Patient Health Questionnaire-2 Score 2 04/12/2025 Sex and Gender Information Value Date Recorded Sex Assigned at Not on file Legal Sex Male 2:11 PM CDT Gender Identity Not on file Sexual Orientation Not on file documented as of this encounter Plan of Treatment Upcoming Encounters Date Type Department Care Team (Late st Contact Info) Description 10/18/2025 9:20 AM CDT [facility] [address] [place], [place] [id number] Randi Douglas MD [address] [place] [phone] documented as of this encounter Visit Diagnoses Not on filedocumented in this encounter Additional Health Concerns Assessment Noted Time PHQ-9 Depression Total Score: 8 04/12/20 25 2:30 PM RESTAURANT AND BAR MANAGER documented as of this encounter Care Teams Bench Mechanic Relationship Specialty Start Date End Date Randi Douglas MD [address] [address] PCP - General INTERNAL MEDICINE 02/08/22 documented as of this encounter
--- OUTSIDE RECORDS SUMMARY | 2025-04-20 14:04 | XMS_ITS | Clinical Summary ---
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 Max of 3 tablets (75 mg) in a 24 hour period. 16 tablet 11 5 Active methylPREDNISolone , FAITH, (MEDROL DOSEPAK) 4 MG tabletIndications: Upper respiratory tract infection, unspecified type 6 TABLETS ON DAY ONE, 5 TABLETS DAY TWO, 4 TABLETS DAY THREE, 3 TABLETS DAY FOUR, 2 TABLETS DAY FIVE, AND 1 TABLET DAY SIX 1 each 5 Active QUEtiapine (SEROQUEL) 50 MG tabletIndications: ALEXANDER (generalized anxiety disorder),Moderate episode of recurrent major depressive disorder (CMS/HCC) Take half a tablet nightly for the first 2 weeks then change to one full pill nightly for sleep and anxiety. 90 tablet 5 Active escitalopram (LEXAPRO) 10 MG tabletIndications: Moderate episode of recurrent major depressive disorder (CMS/HCC),ALEXANDER (generalized anxiety disorder) Take 1 tablet (10 mg total) by mouth daily. 90 tablet 5 025 Discontinu ed(Therapy completed) clindamycin (CLEOCIN) 300 MG capsuleIndications :Upper respiratory tract infection, unspecified type Take 1 capsule (300 mg total) by mouth 3 (three) times daily for 7 days. 21 capsule 025 Active Problems Problem Noted Date Diagnosed Date Varicose veins of both lower extremities 022 Intractable persistent migra ine aura without cerebral infarction and with status migrainosus 02/08/2022 Vertigo 02/08/2022 Encounters Date Type Department Care Team Description 04/14/2025 Results Follow-Up [place] [address] [address] [place] [address] Randi Douglas MD CULTURE STREP A 04/12/2025 2:00 PM GROCERY CASHIER Office Visit [place] [place] [address] Randi Douglas MD Follow Up; Sore Throat (Ongoing a week ); Shortness Of Breath (In nose ); Depression 04/12/2025 Travel 03/04/2025 11:00 AM GROCERY CASHIER Office Visit [place] [address] [place] [address] Radni Douglas MD Follow Up; Anxiety; Depression 03/04/2025 Travel 02/26/2025 7:40 AM GROCERY CASHIER Office Visit [address] [place] [address] Randi Douglas MD Sore Throat (Day 4 ); Headache; Abdominal Pain 02/26/2025 Results Follow-Up [place] [address] [place] [address] Randi Douglas MD CORONAVIRUS (COVID-19) INFLUENZA A & B ANTIGEN IA PANEL, STREP A RAPID, CULTURE STREP A 02/26/2025 Telephone [place] [address] [address] [address] [address] [place] [address] Randi Douglas MD Medication Information 02/26/2025 Travel 01/22/2025 Results Follow-Up [facility] - [address] [place] [address] Randi Douglas MD US ABD LIMITED 01/21/2025 2:39 PM CDT - 01/21/2025 11:59 PM CDT Hospital Encounter [facility] [address] [place] [address] Randi Douglas MD Discharge Disposition: Home or Self Care (Routine Discharge) 01/21/2025 Travel from Last 3 Months Immunizations Immunization Administration Dates Next Due Dtap (Generic) 10/31/2001, 8,1996,1996,04/27 HPV4 (Gardasil) 09/13/2011,10/14/2010 Hepatitis A (Generic) 10/17/2008,10/17/2007 Hepatitis B 1996,1996,1996 Hib (Generic) 07/01/1997,1996,1996 ,1996 MMR (MMRII) 10/31/2001,03/29/1997 Meningococcal (Menactra) 10/17/2007 Pneumococcal (Pneumovax 23) 03/09/2022 Pneumococcal (Prevnar 20) 10/15/2024 Polio Opv (Generic) 10/31/2001,03/29/1997,1996,1996 Tdap (Generic) 02/17/2021,11/17/2006 Varicella (Varivax) 08/17/2007,03/29/1997 Family History Medical History Relation Comments Alcohol Abuse Father Depression Maternal Aunt Diabetes Paternal Uncle Relation Status Comments Father Maternal Aunt Paternal Uncle Social History Tobacco Use Types Packs/Day Years Used Date Smoking Tobacco: Former Cigarettes 0 10/12/2024 - 04/25/2014 Smokeless Tobacco: Never Tobacco Cessation:Counseling Given: Yes Comments:counseled by Dr Douglas Alcohol Use Standard Drinks/Week Comments Not Currently 0 (1 standard drink = 0.6 oz pur e alcohol) PHQ-2 Answer Date Recorded Patient Health Questionnaire-2 Score 2 04/12/2025 Sex and Gender Information Value Date Recorded Sex Assigned at Not on file Legal Sex Male 2:11 PM CDT Gender Identity Not on file Sexual Orientation Not on file Last Filed Vital Signs Vital Sign Reading Time Taken Comments Blood Pressure 134/78 04/12/2025 1:59 PM GROCERY CASHIER Pulse 87 04/12/2025 1:59 PM GROCERY CASHIER Temperature 36.8 C (98.3 F) 04/12/2025 1:59 PM GROCERY CASHIER Respiratory Rate 16 04/12/2025 1:59 PM GROCERY CASHIER Oxygen Saturation 98% 04/12/2025 1:59 PM GROCERY CASHIER Inhaled Oxygen Concentration - - Weight 78.9 kg (174 lb) 04/12/2025 1:59 PM GROCERY CASHIER Height 177.8 cm (5' 10) 04/12/2025 1:59 PM GROCERY CASHIER Body Mass Index 24.97 04/12/2025 1:59 PM GROCERY CASHIER Plan of Treatment Upcoming Encounters Date Type Department Care Team (Late st Contact Info) Description 10/18/2025 9:20 AM CDT Office Visit [facility] - [place] [address] [address] [place] [address] [place] [address] [place] [address] [address] [place] [address] Health Maintenance Due Date Last Done Comments COVID-19 Vaccine ( season) 2024 Annual Physical 10/15/2025 10/15/2024, 02/08/2022 Influenza Adult (#1) 2026 Postpon ed from 01/23/2025 (Patient Refused) DTaP, Tdap and Td Vaccines (8 - Td or Tdap) 02/17/2031 02/17/2021, 11/17/2006, 10/31/2001, Additional history exists Hepatitis B Vaccines Completed 1996, 1996, 1996 Meningococcal Vaccine Aged Out 10/17/2007 No cat nolan eligible based on patient's age to complete this topic Hepatitis A Vaccines Completed 10/17/2008, 06/24/20 08 HPV Vaccines Completed 09/13/2011, 10/14/2010 Hepatitis C Completed 02/15/2022 Pneumococcal Vaccine: Pediatrics (0 to 5 Years) and At-Risk Patients (6 to 49 Years) Aged Out 10/15/2024, 03/09/2022 No longer eligibl e based on patient's age to complete this topic PHQ-2 (Physician [place]) Completed 04/12/2025 Meningococcal B Vaccine Aged Out No l onger eligible based on patient's age to complete this topic RSV Immunizations Under 20 Months Aged Out No longer eligible based on patient's age to complete this topic Procedures Procedure Name Priority Date/Time Associated Diagnosis Comments CULTURE STREP A Routine 04/12/2025 4:14 PM GROCERY CASHIER Upper respiratory tract infection, unspecified type CULTURE STREP A Routine 02/26/2025 8:58 AM GROCERY CASHIER Upper respiratory tract infection, unspecified type STREP A ASSAY W/OPTIC Routine 02/26/2025 Upper respiratory tract infection, unspecified type CORONAVIRUS (COVID-19) INFLUENZA A & B ANTIGEN IA PANEL Routine 02/26/2025 Upper respiratory tract infection, unspecified type US ABD LIMITED Routine 01/21/2025 3:27 PM CDT History of fatty infiltration of liver HEPATITIS C ANTIBODY Routine 02/15/2022 10:14 AM CDT Annual physical exam Establishing care with new doctor, encounter for Routine general medical examination at a health care facility Encounter for hepatitis C screening test for low risk patient from Last 3 Months or Most Recently Relevant to Health Maintenance Results * CULTURE STREP A (04/12/2025 4:14 PM GROCERY CASHIER) Only the most recent of2 resultswithin the time period is included. THROAT CULTURE STREP A ONLY Negative for Group A Streptococci Negative for Group A Streptococci 04/13/2025 5:50 PM GROCERY CASHIER -[facility] SWAB STRUCTURE OF ANTERIOR REGION OF NECK / Unknown 04/12/2025 4:14 PM GROCERY CASHIER us Randi Douglas MD MICROBIOLOGY - GENERAL ORDERABLE S Final Result Performing Organization Address City/[facility]/ZIP Co de Phone Number CRISTOBAL MA MARIA STEIN [address] [facility] [place] [address], [place] [phone] * CORONAVIRUS (COVID-19) INFLUENZA A & B ANTIGEN IA PANEL (02/26/2025) CORONAVIRUS ANTIGEN IA NEGATIVE NEGATIVE [id number], [place] INFLUENZA A NEGATIVE NEGATIVE [id number], [place] INFLUENZA B NEGATIVE NEGATIVE [id number], [place] Internal Control: VALID VALID [id number], [place] NASAL STRUCTURE / Unknown 02/26/2025 us Randi Douglas MD MICROBIOLOGY - GENERAL ORDERABLE S Final Result Performing Organization Address City/[facility] Co de Phone Number [id number], [facility] [address] [place] [address], [place] [phone] * STREP A RAPID (02/26/2025) RAPID STREP TEST NEGATIVE NEGATIVE [id number], [place] Internal Control: VALID VALID [id number], [place] STRUCTURE OF ANTERIOR REGION OF NECK / Unknown 02/26/2025 Randi Douglas MD MICROBIOLOGY - GENERAL ORDERABLE S Final Result Performing Organization Address City/[facility] Co de Phone Number [id number], [place] [address] [place] [address], [place] [phone] * US ABD LIMITED (01/21/2025 3:27 PM CDT) Anatomical Region Laterality Modality Abdomen Ultrasound 01/22/2025 3:21 AM CDT Impressions 01/22/2025 3:21 AM CDT IMPRESSION: 1. Unremarkable limited abdominal sonogram. 2. No sonographic evidence of significant hepatic steatosis. Referred By: RANDI DOUGLAS Interpreted By: Oskar Cyr MD, 01/22/2025 3:21 AM Narrative 01/22/2025 3:21 AM CDT [facility] [address] [place] [address] EXAM: US ABD LIMITED INDICATION: History of diffuse hepatic steatosis COMPARISON: None FINDINGS: Limited abdominal sonography was performed. The liver is normal in echogenicity and craniocaudal dimension. No focal parenchymal lesions are seen. No intrahepatic biliary ductal dilation. Portal and hepatic veins are patent with appropriate directional flow. Gallbladder is nondistended and demonstrates normal wall thickness of 0.2 cm. No evidence of sludge, cholelithiasis, or pericholecystic fluid. Sonographic Shirley sign was reported as negative by the hydrate thickener operator. Common bile duct is within normal limits, measuring 0.4 cm. Pancreas is normal as visualized. Right kidney measures 11.9 x 4.3 x 6.4 cm. Renal echotexture is within normal limits without evidence of focal parenchymal abnormality. No evidence of hydronephrosis or shadowing calculus. No perinephric fluid is seen. Left kidney was not included in this study. Procedure Note Oskar Cyr MD - 01/22/2025 [facility] [address] [place] [address] EXAM: US ABD LIMITED INDICATION: History of diffuse hepatic steatosis COMPARISON: None FINDINGS: Limited abdominal sonography was performed. The liver is normal in echogenicity and craniocaudal dimension. No focalparenchymal lesions are seen. No intrahepatic biliary ductal dilation.Portal and hepatic veins are patent with appropriate directional flow. Gallbladder is nondistended and demonstrates normal wall thickness of 0.2cm. No evidence of sludge, cholelithiasis, or pericholecystic fluid.Sonographic Shirley sign was reported as negative by the hydrate thickener operator. Common bile duct is within normal limits, measuring 0.4 cm. Pancreas is normal as visualized. Right kidney measures 11.9 x 4.3 x 6.4 cm. Renal echotexture is withinnormal limits without evidence of focal parenchymal abnormality. Noevidence of hydronephrosis or shadowing calculus. No perinephric fluid isseen. Left kidney was not included in this study. IMPRESSION: 1. Unremarkable limited abdominal sonogram. 2. No sonographic evidence of significant hepatic steatosis. Referred By: RANDI DOUGLAS Interpreted By: Oskar Cyr MD, 01/22/2025 3:21 AM Randi Douglas MD ULTRASOUND Final Result * HEPATITIS C ANTIBODY (02/15/2022 10:14 AM CDT) HEPATITIS C AB NON-REACTI VE NON-REACT LYNN 02/15/2022 8:16 PM CDT [facility] Comment: ANTIBODIES TO HCV NOT DETECTED. DOES NOT EXCLUDE THE POSSIBILITY OF EXPOSURE TO HCV. 02/15/2022 10:1 4 AM CDT Randi Douglas MD LABORATORY Final Result [facility] [address] [place] [address], [id number] from Last 3 Months or Most Recently Relevant to Health Maintenance Insurance [employer] Care Teams Licensed Nurse Practitioner Relationship Specialty Start Date End Date Randi Douglas MD [address] [facility] [address] [place] [address] PCP - General INTERNAL MEDICINE 02/08/22
[2025-04-20] MEDS: KETOROLAC 30 MG/ML VIAL (*BKC) IV PUSH (15:06)
== END 2025-04-20 15:17 | disposition home or self-care (01) ==
PROVIDERS: Emergency Provider Emergency Medicine; PCP Internal Medicine
DX: R07.9 Chest pain, unspecified (principal); F17.210 Nicotine dependence, cigarettes, uncomplicated
CPT/HCPCS: 36415; 71046; 80053; 83690; 84484; 85025; 85610; 85730; 93005; 96374; 99284; J1885